=== PATIENT | female | born 1995 | race Caucasian/White ===

== ENCOUNTER 2016-08-07 13:01 | Inpatient (IN) ==
--- NOTE | 2016-08-07 13:18 | Emergency Department Note ---
Disposition Clinical Impression: Suicidal ideation Disposition: Admitted As Inpatient Referrals: Crystal Ervin DO [Resident] - Forms: ED Satisfaction Letter Psych HPI - General Chief Complaint: ED Psychiatric Symptoms Stated Complaint: SI Time Seen by Provider: 08/07/16 13:17 Source: patient Mode of arrival: ambulatory Limitations: no limitations Nursing Notes Reviewed: Yes Vital Signs Reviewed: Yes - History of Present Illness Pt complaint: suicidal ideation, feels depressed Onset (ago): week(s) Duration: constant, changing over time, getting worse History of similar episodes: Yes Improves with: none Worsens with: none Alleged intoxication: No Associated Psychiatric Symptoms: depression, suicidal ideation Associated symptoms: Reports: nausea Traumatic symptoms: denies traumatic injury Treatments prior to arrival: none Self harm or harm to others: admits thoughts of self harm - Related Data Home Medications Medication Instructions Recorded Confirmed Amlodipine [Norvasc] 08/11/15 LORazepam [Ativan] 0.5 mg PO 08/11/15 Multivitamin [Multivitamins] 08/11/15 Previous Rx's Medication Instructions Recorded Amoxicillin 875 mg PO BID #20 tablet 08/11/15 GuaiFENesin ER [Mucinex] 1,200 mg PO BID #20 tbbp.12hr 08/11/15 Loratadine [Claritin] 10 mg PO DAILY #30 tablet 08/11/15 Allergies Allergy/AdvReac Type Severity Reaction Status Date / Time No Known Allergies Allergy Verified 08/07/16 13:08 All systems ED: reviewed and negative except as stated. Constitutional: Denies: fever, chills, weakness Gastrointestinal: Reports: nausea Past Medical History - Past Medical History Source: patient, old records reviewed, obtained from family, nursing notes reviewed Medical history: Reports: hypertension Psychiatric history: Reports: anxiety, depression, previous psychiatric hospitalization - Social History Smoking Status: Never smoker Smokeless Tobacco Status: No Alcohol use: Reports: none Drug use: Reports: none Physical Exam - General Limitations: no limitations General appearance: alert, in no apparent distress - Head Head exam: atraumatic, normocephalic, normal inspection - Eye Eye exam: Present: normal appearance, PERRL, EOMI - Expanded Eye Exam Pupils: Left: reactive - ENT ENT exam: normal exam, normal oropharynx, mucous membranes moist - Expanded ENT Exam External ear exam: Present: normal external inspection Mouth exam: Present: normal external inspection Teeth exam: Present: normal inspection Throat exam: Present: normal inspection - Neck Neck exam: Present: normal inspection, full ROM, trachea midline - Chest Chest inspection: Present: normal inspection, symmetric chest wall rise - Respiratory Respiratory exam: Present: normal lung sounds bilaterally - Cardiovascular Cardiovascular exam: Present: regular rate, normal rhythm, normal heart sounds - Abdominal Exam Abdominal exam: Present: soft, Non-Tender. Absent: tenderness, distention, guarding, rebound, rigidity - Extremities Exam Extremities exam: Present: normal inspection, full ROM. Absent: tenderness, pedal edema - Expanded Upper Extremity Exam Shoulder exam: Present: normal inspection, full ROM Arm exam: Present: normal inspection, full ROM Elbow exam: Present: normal inspection, full ROM Forearm/Wrist exam: Present: normal inspection, full ROM Hand exam: Present: normal inspection, full ROM Vascular exam: Normal: capillary refill, radial pulse - Expanded Lower Extremity Exam Hip/Pelvis exam: Present: normal inspection, full ROM Upper leg exam: Present: normal inspection, full ROM Knee exam: Present: normal inspection, full ROM Lower leg exam: Present: normal inspection, full ROM Ankle exam: Present: normal inspection, full ROM Foot/toe exam: Present: normal inspection, full ROM Neurovascular/Tendon exam: Absent: motor deficit, sensory deficit, tendon deficit - Back Exam Back exam: Present: normal inspection, full ROM. Absent: tenderness - Neurological Exam Neurological exam: Present: alert, oriented X3 - Expanded Neurological Exam Patient oriented to: Present: person, place, time Coma Scale Eye Opening: Spontaneous Coma Scale Motor Response: Obeys Commands Coma Scale Verbal Response: Oriented Coma Scale Total: 15 - Psychiatric Psychiatric exam: Present: normal affect, normal mood - Skin Skin exam: Present: warm, dry, intact, normal color, other (left arm shallow self inflicted abrasions) Course Vital Signs Temperature 98.5 F 08/07/16 13:04 Pulse Rate 117 08/07/16 13:04 Respiratory Rate 17 08/07/16 13:04 Blood Pressure 146/102 08/07/16 13:04 O2 Sat by Pulse Oximetry 96 08/07/16 13:04 Temperature 98.5 F 08/07/16 13:04 Pulse Rate 83 08/07/16 14:12 Respiratory Rate 16 08/07/16 14:12 Blood Pressure 130/85 08/07/16 14:12 O2 Sat by Pulse Oximetry 99 08/07/16 14:12 Oxygen Delivery Oxygen Delivery Room Air Psych - Lab Data Result diagrams: 08/07/16 13:30 08/07/16 13:30 Lab Results 08/07/16 08/07/16 08/07/16 Range/Units 13:13 13:13 13:13 WBC (4.3-11.1) K/mcL RBC (3.82-4.97) M/mcL Hgb (11.5-15.4) g/dL Hct (35.3-44.9) % MCV (83.0-100.0) fL MCH (28.0-33.3) pg MCHC (31.6-35.5) g/dL RDW (11.5-14.5) % Plt Count (140-400) K/mcL MPV (9.4-12.4) fL Immature Gran % (0-4) % Seg Neutrophils % % Lymphocytes % % Monocytes % % Eosinophils % % Basophils % % Neutrophils # (1.6-8.9) K/mcL Lymphocytes # (0.6-4.6) K/mcL Monocytes # (0.0-1.3) K/mcL Eosinophils # (0.0-0.6) K/mcL Basophils # (0.0-0.2) K/mcL Sodium (136-145) mEq/L Potassium (3.5-4.5) mEq/L Chloride (98-109) mEq/L Carbon Dioxide (19-29) mEq/L BUN (7-20) mg/dL Creatinine (0.57-1.11) mg/dL Est GFR ( Amer) (> 60) Est GFR (Non-Af Amer) (> 60) BUN/Creatinine Ratio (6-26) Glucose (70-99) mg/dL Calculated Osmolality (280-300) Calcium (8.6-10.8) mg/dL Total Bilirubin (0.2-1.2) mg/dL AST (5-34) Units/L ALT (0-55) Units/L Alkaline Phosphatase (38-126) Units/L Serum Total Protein (6.0-8.3) g/dL Albumin (3.5-5.0) g/dL Globulin (2.4-3.5) g/dL Albumin/Globulin Ratio (1.1-2.2) TSH (0.350-4.840) mcIU/mL Urine Color Yellow (Yellow) Urine Clarity Clear (Clear) Urine pH 7.0 (5.0-8.0) pH Units Ur Specific [place] 1.014 (1.010-1.025) Urine Protein Negative (Neg-Trace) mg/dL Urine Glucose (UA) Normal (Normal) mg/dL Urine Ketones Negative (Negative) mg/dL Urine Blood Negative (Negative) Urine Nitrite Negative (Negative) Urine Bilirubin Negative (Negative) Urine Urobilinogen Normal (Normal) mg/dL Ur Leukocyte Esterase Negative (Negative) Ur Culture Indicated? NO (NO) Urine Test Negative (Negative) Salicylates (15-30) mg/dL Urine Opiates Screen Negative (Fpwljq=956) ng/mL Acetaminophen (10-30) mcg/mL Ur Barbiturates Screen Negative (Zlkswq=889) ng/mL Ur Phencyclidine Scrn Negative (Cutoff=25) ng/mL Ur Amphetamines Screen Negative (Nyzskc=3466) ng/mL U Benzodiazepines Scrn Negative (Ymjnwx=824) ng/mL Urine Cocaine Screen Negative (Cutoff= 300) ng/mL U Marijuana (THC) Screen Negative (Cutoff = 50) ng/mL 08/07/16 08/07/16 08/07/16 Range/Units 13:30 13:30 13:30 WBC 9.8 (4.3-11.1) K/mcL RBC 4.73 (3.82-4.97) M/mcL Hgb 14.2 (11.5-15.4) g/dL Hct 40.9 (35.3-44.9) % MCV 86.5 (83.0-100.0) fL MCH 30.0 (28.0-33.3) pg MCHC 34.7 (31.6-35.5) g/dL RDW 11.9 (11.5-14.5) % Plt Count 380 (140-400) K/mcL MPV 10.4 (9.4-12.4) fL Immature Gran % 0.2 (0-4) % Seg Neutrophils % 66.0 % Lymphocytes % 26.9 % Monocytes % 5.8 % Eosinophils % 0.6 % Basophils % 0.5 % Neutrophils # 6.4 (1.6-8.9) K/mcL Lymphocytes # 2.6 (0.6-4.6) K/mcL Monocytes # 0.6 (0.0-1.3) K/mcL Eosinophils # 0.1 (0.0-0.6) K/mcL Basophils # 0.1 (0.0-0.2) K/mcL Sodium 140 (136-145) mEq/L Potassium 3.7 (3.5-4.5) mEq/L Chloride 104 (98-109) mEq/L Carbon Dioxide 23 (19-29) mEq/L BUN 9 (7-20) mg/dL Creatinine 0.85 (0.57-1.11) mg/dL Est GFR ( Amer) > 60 (> 60) Est GFR (Non-Af Amer) > 60 (> 60) BUN/Creatinine Ratio 11 (6-26) Glucose 108 H (70-99) mg/dL Calculated Osmolality 289 (280-300) Calcium 10.2 (8.6-10.8) mg/dL Total Bilirubin 0.5 (0.2-1.2) mg/dL AST 14 (5-34) Units/L ALT 14 (0-55) Units/L Alkaline Phosphatase 81 (38-126) Units/L Serum Total Protein 9.1 H (6.0-8.3) g/dL Albumin 4.7 (3.5-5.0) g/dL Globulin 4.4 H (2.4-3.5) g/dL Albumin/Globulin Ratio 1.1 (1.1-2.2) TSH 4.841 H (0.350-4.840) mcIU/mL Urine Color (Yellow) Urine Clarity (Clear) Urine pH (5.0-8.0) pH Units Ur Specific [place] (1.010-1.025) Urine Protein (Neg-Trace) mg/dL Urine Glucose (UA) (Normal) mg/dL Urine Ketones (Negative) mg/dL Urine Blood (Negative) Urine Nitrite (Negative) Urine Bilirubin (Negative) Urine Urobilinogen (Normal) mg/dL Ur Leukocyte Esterase (Negative) Ur Culture Indicated? (NO) Urine Test (Negative) Salicylates < 5.0 L (15-30) mg/dL Urine Opiates Screen (Sbgrrp=426) ng/mL Acetaminophen < 1.0 L (10-30) mcg/mL Ur Barbiturates Screen (Wykecw=811) ng/mL Ur Phencyclidine Scrn (Cutoff=25) ng/mL Ur Amphetamines Screen (Uhmmbd=6247) ng/mL U Benzodiazepines Scrn (Metwru=067) ng/mL Urine Cocaine Screen (Cutoff= 300) ng/mL U Marijuana (THC) Screen (Cutoff = 50) ng/mL Psychiatric Medical Clearance - Medical Clearance Checklist Medical History: No Social History Section defined Current Vitals: Last Vital Signs Temp 98.5 F 08/07/16 13:04 Pulse 83 08/07/16 14:12 Resp 16 08/07/16 14:12 BP 130/85 08/07/16 14:12 Pulse Ox 99 08/07/16 14:12 Psychiatric Lab Panel: Drug Levels and Toxicity 08/07/16 08/07/16 13:13 13:30 Urine Opiates Screen Negative Acetaminophen < 1.0 L Ur Barbiturates Screen Negative Ur Phencyclidine Scrn Negative Ur Amphetamines Screen Negative U Benzodiazepines Scrn Negative Urine Cocaine Screen Negative U Marijuana (THC) Screen Negative Abnormal Labs: Abnormal lab results Glucose 108 mg/dL (70-99) H 08/07/16 13:30 Serum Total Protein 9.1 g/dL (6.0-8.3) H 08/07/16 13:30 Globulin 4.4 g/dL (2.4-3.5) H 08/07/16 13:30 TSH 4.841 mcIU/mL (0.350-4.840) H 08/07/16 13:30 Salicylates < 5.0 mg/dL (15-30) L 08/07/16 13:30 Acetaminophen < 1.0 mcg/mL (10-30) L 08/07/16 13:30 Statement of Medical Clearance: I have evaluated the patient, reviewed diagnostic information, and certify that the patient's medical condition is sufficiently stable that transfer to the psychiatric unit does not pose a significant risk of deterioration.
[2016-08-07 13:40] LABS: Basophils # 0.1 K/mcL (0.0-0.2); Basophils % 0.5 %; Eosinophils # 0.1 K/mcL (0.0-0.6); Eosinophils % 0.6 %; Hematocrit 40.9 % (35.3-44.9); Hemoglobin 14.2 g/dL (11.5-15.4); Immature Granulocytes % 0.2 % (0-4); Lymphocytes # 2.6 K/mcL (0.6-4.6); Lymphocytes % 26.9 %; Mean Corpuscular HGB Conc 34.7 g/dL (31.6-35.5); Mean Corpuscular Volume 86.5 fL (83.0-100.0); Mean Platelet Volume 10.4 fL (9.4-12.4); Monocytes # 0.6 K/mcL (0.0-1.3); Monocytes % 5.8 %; Neutrophils # 6.4 K/mcL (1.6-8.9); Platelet Count 380 K/mcL (140-400); Red Blood Count 4.73 M/mcL (3.82-4.97); Red Cell Distribution Width 11.9 % (11.5-14.5)
[2016-08-07 13:53] LABS: Alanine Aminotransferase 14 Units/L (0-55); Albumin 4.7 g/dL (3.5-5.0); Albumin/Globulin Ratio 1.1 (1.1-2.2); Alkaline Phosphatase 81 Units/L (38-126); Aspartate Amino Transferase 14 Units/L (5-34); BUN/Creatinine Ratio 11 (6-26); Bilirubin,Total 0.5 mg/dL (0.2-1.2); Blood Urea Nitrogen 9 mg/dL (7-20); Calcium 10.2 mg/dL (8.6-10.8); Carbon Dioxide 23 mEq/L (19-29); Chloride 104 mEq/L (98-109); Globulin 4.4 g/dL (2.4-3.5); Glucose 108 mg/dL (70-99); Osmolality,Calculated 289 (280-300); Potassium 3.7 mEq/L (3.5-4.5); Sodium 140 mEq/L (136-145); Total Protein 9.1 g/dL (6.0-8.3); eGFR For African Americans > 60 (> 60); eGFR For Non-African Americans > 60 (> 60)
[2016-08-07 13:54] LABS: Acetaminophen < 1.0 mcg/mL (10-30); Salicylate < 5.0 mg/dL (15-30)
[2016-08-07 14:01] LABS: Bilirubin,Urine Negative (Negative); Blood,Urine Negative (Negative); Clarity,Urine Clear (Clear); Color,Urine Yellow (Yellow); Glucose,Urine (UA) Normal (Normal); Ketones,Urine Negative (Negative); Leukocyte Esterase,Urine Negative (Negative); Nitrite,Urine Negative (Negative); Protein,Urine Negative (Neg-Trace); Specific Gravity,Urine 1.014 (1.010-1.025); Urobilinogen,Urine Normal (Normal)
[2016-08-07 14:03] LABS: Amphetamine Screen,Urine Negative ng/mL (Cutoff=1000); Barbiturate Screen,Urine Negative ng/mL (Cutoff=200); Benzodiazepines Screen,Urine Negative ng/mL (Cutoff=200); Cannabinoid Screen,Urine Negative ng/mL (Cutoff = 50); Cocaine Screen,Urine Negative ng/mL (Cutoff= 300); Opiate Screen,Urine Negative ng/mL (Cutoff=300); Phencyclidine Screen,Urine Negative ng/mL (Cutoff=25)
[2016-08-07 14:14] LABS: Thyroid Stimulating Hormone 4.841 mcIU/mL (0.350-4.840)
[2016-08-07] MEDS ORDERED: *HR* LORazepam 2 MG/ML VIAL IM PRN (18:27)
[2016-08-07] MEDS ORDERED: MOM Conc 10 ML UD.LIQ PO PRN (18:27)
[2016-08-07] MEDS ORDERED: hydrOXYzine pamoate 25 MG CAPSULE PO PRN (18:27)
[2016-08-07] MEDS ORDERED: traZODone 50 MG TABLET PO PRN (18:27)
[2016-08-07] MEDS ORDERED: Acetaminophen 325 MG TABLET PO PRN (18:27)
[2016-08-07] MEDS ORDERED: Mag Hydrox/Al Hydrox/Simeth 30 ML UDC PO PRN (18:27)
[2016-08-07] MEDS ORDERED: Haloperidol Lactate 5 MG/ML VIAL IM PRN (18:27)
[2016-08-07] MEDS: amLODIPine 5 MG TABLET PO SCH (21:09)
[2016-08-08] MEDS: amLODIPine 5 MG TABLET PO SCH ×2 (08:42→21:04)
--- NOTE | 2016-08-08 14:07 | Psychiatry History & Physical ---
Date of Encounter: 08/08/16 Time of Encounter: 13:20 History of Present Illness Patient Stated Chief Complaint: "I just can't take the delusions." Medicare Admission Attestation: For traditional Medicare patients the provided hospital inpatient services are reasonable and necessary and in the case of services not specified as inpatient -only under 42 CFR 419.22 (n), that they are appropriately provided as inpatient services in accordance 42 CFR 412.3. For Critical Access Hospital the patient may reasonably be expected to be discharged or transferred to a hospital within 96 hours after admission to the Critical Access Hospital. Admitted From: Emergency Dept History of Present Illness: Ms. Calix is a 21 year old female with a past histryomood, anxiety, personality disorder who presented to the hospital with increasing depression as well as suicidal and homicidal ideation. Patient reports that she has stopped taking all her medications and is not doing well. Patient reports difficulty sleeping. She reports auditory hallucinations and also thoughts about wanting to hurt herself. She reports visual hallucinations and seeing shadows out of the corners of her eyes. She reports that she feels like she is "being watched." She has had difficulty coping with multiple stressors. She lives with her father. She is not responding to internal stimuli at the time the interview. Patient states that about 3 months ago her entire family got stomach and her fear of germs and vomiting exacerbated now she feels very distressed and anxious all the time even though his sickness has passed. She continually avoids medications because of perceived side effects and concern for side effects. She denies obsessions or compulsions today. She does report a history of self-harm and she will cut and burned herself at times. There are superficial scratch chin on her forearms. She reports suicidal ideation but denied actually intending suicide. She does report 3 previous psychiatric admissions only one of which was here to the unit. Michael previous admissions in 2012 2013 at [facility]. Patient continues to report depression, mood swings, irritability as well as vague suicidal ideation without plan. Past Med Surg Social Fam HX - Past Medical History Medical history: hypertension - Past Psychiatric History Psychiatric history: Reports: anxiety, depression, previous psychiatric hospitalization. Denies: prior suicide attempt Past psychiatric history details: Patient has history of mood disorder, personality disorder, anxiety. Previous treatment here at [facility] outpatient but patient stopped coming. No previous suicide attempts. Previous admissions per history of present illness. Family psychiatric history: Yes Family Psychiatric History Details: Patient's sister has depression. Family History of Suicide: None - Social History Smoking Status: Never smoker Smokeless Tobacco Status: No Alcohol use: none Drug use: none Occupational status: unemployed Current living situation: Home, With Family Activity Level: Independent ambulation Medications & Allergies Amlodipine [Norvasc] 5 mg PO BID 08/11/15 [History] Allergies No Known Allergies Allergy (Verified 08/07/16 13:08) Review of Systems Constitutional: Denies: fever, chills, weakness, weight change Eyes: Denies: eye pain, vision change Ears, Nose, Throat: Denies: ear pain, throat pain, dental pain, hearing loss, congestion Cardiovascular: Denies: chest pain, palpitations, dyspnea on exertion Respiratory: Denies: cough, dyspnea, wheezes Gastrointestinal: Reports: nausea Genitourinary male: Denies: urgency, dysuria, frequency, genital lesions Genitourinary female: Denies: urgency, dysuria, frequency, abnormal menses, dyspareunia Musculoskeletal: Denies: joint swelling, joint pain Integumentary: Denies: rash, lesions, pruritus Neurological: Denies: headache, weakness, numbness, memory loss Psychiatric: Reports: depression, anxiety, abnormal sleep pattern, suicidal ideation, auditory hallucinations, visual hallucinations, difficulty concentrating, hopelessness, irritability, mood swings. Denies: homicidal ideation Endocrine: Denies: fatigue, heat or cold intolerance Hematologic/Lymphatic: Denies: easy bruising, lymphadenopathy Allergic/Immunologic: Denies: urticaria, itchy eyes Mental Status Exam Patient orientation: Yes Person, Yes Time, Yes Place Level of alertness: Alert Patient appearance: Appropriate, Well Groomed Behavior: calm, cooperative Psychomotor activity: Normal Eye contact: Minimal Contact Mood description: Depressed, Anxious Affect description: blunted Speech pattern: Normal rate, Normal rhythm, Normal tone Speech volume: Soft/Quiet Thought process: Logical, Goal Oriented Thought content: Yes Suicidal ideation, Yes Paranoid delusion Perceptual disturbances: No Reacting to internal stimuli, Yes Auditory hallucinations, Yes Visual hallucinations Attention span: Capable of Focused Attention Memory description: Grossly Intact Patient reliability: Questionable Historian Intelligence estimate: Average Judgment: Limited Insight: Minimal Exam - HEENT Head exam IM: Present: atraumatic Eye exam IM: Present: normal appearance - Neurological Neurological exam IM: Present: CN II-XII intact - Skin Skin exam IM: Present: dry, warm Results - Vital Signs Vital signs: Temp Pulse Resp BP Pulse Ox 98 F 83 16 133/92 99 08/08/16 09:00 08/08/16 09:00 08/08/16 09:00 08/08/16 09:00 08/07/16 14:12 - Labs Labs: Laboratory Last Values WBC 9.8 K/mcL (4.3-11.1) 08/07/16 13:30 RBC 4.73 M/mcL (3.82-4.97) 08/07/16 13:30 Hgb 14.2 g/dL (11.5-15.4) 08/07/16 13:30 Hct 40.9 % (35.3-44.9) 08/07/16 13:30 MCV 86.5 fL (83.0-100.0) 08/07/16 13:30 MCH 30.0 pg (28.0-33.3) 08/07/16 13:30 MCHC 34.7 g/dL (31.6-35.5) 08/07/16 13:30 RDW 11.9 % (11.5-14.5) 08/07/16 13:30 Plt Count 380 K/mcL (140-400) 08/07/16 13:30 MPV 10.4 fL (9.4-12.4) 08/07/16 13:30 Immature Gran % 0.2 % (0-4) 08/07/16 13:30 Seg Neutrophils % 66.0 % 08/07/16 13:30 Lymphocytes % 26.9 % 08/07/16 13:30 Monocytes % 5.8 % 08/07/16 13:30 Eosinophils % 0.6 % 08/07/16 13:30 Basophils % 0.5 % 08/07/16 13:30 Neutrophils # 6.4 K/mcL (1.6-8.9) 08/07/16 13:30 Lymphocytes # 2.6 K/mcL (0.6-4.6) 08/07/16 13:30 Monocytes # 0.6 K/mcL (0.0-1.3) 08/07/16 13:30 Eosinophils # 0.1 K/mcL (0.0-0.6) 08/07/16 13:30 Basophils # 0.1 K/mcL (0.0-0.2) 08/07/16 13:30 Sodium 140 mEq/L (136-145) 08/07/16 13:30 Potassium 3.7 mEq/L (3.5-4.5) 08/07/16 13:30 Chloride 104 mEq/L (98-109) 08/07/16 13:30 Carbon Dioxide 23 mEq/L (19-29) 08/07/16 13:30 BUN 9 mg/dL (7-20) 08/07/16 13:30 Creatinine 0.85 mg/dL (0.57-1.11) 08/07/16 13:30 Est GFR ( Amer) > 60 (> 60) 08/07/16 13:30 Est GFR (Non-Af Amer) > 60 (> 60) 08/07/16 13:30 BUN/Creatinine Ratio 11 (6-26) 08/07/16 13:30 Glucose 108 mg/dL (70-99) H 08/07/16 13:30 Calculated Osmolality 289 (280-300) 08/07/16 13:30 Calcium 10.2 mg/dL (8.6-10.8) 08/07/16 13:30 Total Bilirubin 0.5 mg/dL (0.2-1.2) 08/07/16 13:30 AST 14 Units/L (5-34) 08/07/16 13:30 ALT 14 Units/L (0-55) 08/07/16 13:30 Alkaline Phosphatase 81 Units/L (38-126) 08/07/16 13:30 Serum Total Protein 9.1 g/dL (6.0-8.3) H 08/07/16 13:30 Albumin 4.7 g/dL (3.5-5.0) 08/07/16 13:30 Globulin 4.4 g/dL (2.4-3.5) H 08/07/16 13:30 Albumin/Globulin Ratio 1.1 (1.1-2.2) 08/07/16 13:30 TSH 4.841 mcIU/mL (0.350-4.840) H 08/07/16 13:30 Urine Color Yellow (Yellow) 08/07/16 13:13 Urine Clarity Clear (Clear) 08/07/16 13:13 Urine pH 7.0 pH Units (5.0-8.0) 08/07/16 13:13 Ur Specific [place] 1.014 (1.010-1.025) 08/07/16 13:13 Urine Protein Negative mg/dL (Neg-Trace) 08/07/16 13:13 Urine Glucose (UA) Normal mg/dL (Normal) 08/07/16 13:13 Urine Ketones Negative mg/dL (Negative) 08/07/16 13:13 Urine Blood Negative (Negative) 08/07/16 13:13 Urine Nitrite Negative (Negative) 08/07/16 13:13 Urine Bilirubin Negative (Negative) 08/07/16 13:13 Urine Urobilinogen Normal mg/dL (Normal) 08/07/16 13:13 Ur Leukocyte Esterase Negative (Negative) 08/07/16 13:13 Ur Culture Indicated? NO (NO) 08/07/16 13:13 Urine Test Negative (Negative) 08/07/16 13:13 Salicylates < 5.0 mg/dL (15-30) L 08/07/16 13:30 Urine Opiates Screen Negative ng/mL (Efgxwj=697) 08/07/16 13:13 Acetaminophen < 1.0 mcg/mL (10-30) L 08/07/16 13:30 Ur Barbiturates Screen Negative ng/mL (Adynfo=013) 08/07/16 13:13 Ur Phencyclidine Scrn Negative ng/mL (Cutoff=25) 08/07/16 13:13 Ur Amphetamines Screen Negative ng/mL (Acnihx=5131) 08/07/16 13:13 U Benzodiazepines Scrn Negative ng/mL (Njsjxp=127) 08/07/16 13:13 Urine Cocaine Screen Negative ng/mL (Cutoff= 300) 08/07/16 13:13 U Marijuana (THC) Screen Negative ng/mL (Cutoff = 50) 08/07/16 13:13 Assessment and Plan (1) Bipolar disorder, unspecified Current visit: Yes Status: Acute Plan: Admit inpatient for safety and stabilization, Close observation, Suicide Precautions per unit protocol, Encourage participation in unit milieu, Group Therapy, Monitor sleep, Monitor appetite Additional Plan: Discussed multiple medications with the patient. She is very hesitant to take meds. We will start with Seroquel 50 mg by mouth daily at bedtime as patient feels that she has the most benefit with this medication and states it helped with auditory and visual hallucinations. Encourage patient to participate in therapeutic milieu and will monitor sleep and ADLs. Risks, benefits, side effects, alternatives discussed w/pt: Yes Patient agreeable to treatment: Yes Plans for Post Hospital Care: Home Estimated Length of Stay (Days): 3 Qualifiers: Active/Remission status: currently active Current bipolar episode type: depressed Current episode severity: severe Psychotic features: with psychotic features Qualified Code(s): F31.5 - Bipolar disorder, current episode depressed, severe, with psychotic features (2) Anxiety Current visit: Yes Status: Acute Plan: Admit inpatient for safety and stabilization, Close observation, Suicide Precautions per unit protocol, Encourage participation in unit milieu, Group Therapy, Monitor sleep, Monitor appetite Additional Plan: Ativan when necessary as needed for anxiety. Patient has tolerated this medication. Encourage positive coping strategies. Risks, benefits, side effects, alternatives discussed w/pt: Yes Patient agreeable to treatment: Yes Plans for Post Hospital Care: Home (3) Personality disorder Current visit: Yes Status: Acute Plan: Admit inpatient for safety and stabilization, Close observation, Suicide Precautions per unit protocol, Encourage participation in unit milieu, Group Therapy, Monitor sleep, Monitor appetite Additional Plan: I will encourage patient to attend regular therapy appointments on discharge. Patient has poor coping strategies for limited stressors in her life at this time. I reviewed patient's outpatient records, most recently treated by PCP patient was supposed to take Geodon but refused to try it. Risks, benefits, side effects, alternatives discussed w/pt: Yes Patient agreeable to treatment: Yes Plans for Post Hospital Care: Home Estimated Length of Stay (Days): 3
[2016-08-08] MEDS: *HR* LORazepam 1 MG TABLET PO PRN (21:53)
[2016-08-09] MEDS: amLODIPine 5 MG TABLET PO SCH ×2 (10:16→21:01)
[2016-08-09] MEDS ORDERED: *HR* LORazepam 0.5 MG TABLET PO PRN (13:18)
--- NOTE | 2016-08-09 13:52 | Psychiatry Progress Note ---
Date of Encounter: 08/09/16 Time of Encounter: 12:40 Subjective Interval history: Patient seen today for follow-up. She reports she still depressed and intermittently having suicidal ideation. She had a "meltdown last night." She told staff that she did not think anybody cared about her and that nothing was helping. She did take her Seroquel which helped calm her down and she was also given Ativan. Patient feels that both of the doses may have been a little bit high and she now feels a bit groggy this morning. She would like to continue with the same medication but maybe decrease the dosage. She still feels depressed. She also reports some anxiety but states that this is worse in the hospital than when she is home. She denies auditory or visual hallucinations at the time of the interview but admits to still intermittently having hallucinations both visual and auditory. Review of Systems Psychiatric: Reports: depression, anxiety, abnormal sleep pattern, suicidal ideation, auditory hallucinations, visual hallucinations, difficulty concentrating, irritability, mood swings, panic attacks. Denies: homicidal ideation Objective: Exam Patient orientation: Yes Person, Yes Time, Yes Place Level of alertness: Alert Patient appearance: Appropriate Behavior: cooperative, anxious Psychomotor activity: Normal Eye contact: Fleeting Contact Mood description: Depressed, Anxious Affect description: flat, dysphoric Speech pattern: Slowed Speech volume: Soft/Quiet Thought process: Intact, Logical Thought content: Yes Suicidal ideation, No Homicidal ideation, Yes Paranoid delusion Perceptual disturbances: No Reacting to internal stimuli, Yes Auditory hallucinations, Yes Visual hallucinations Judgment: Limited Insight: Minimal Results - Vital Signs Vital Signs: Temp Pulse Resp BP Pulse Ox 98.0 F 114 16 137/93 99 08/09/16 08:45 08/09/16 08:45 08/09/16 08:45 08/09/16 08:45 08/07/16 14:12 Assessment and Plan (1) Bipolar disorder, unspecified Current visit: Yes Status: Acute Plan: Continue hospitalization, Close observation, Suicide Precautions per unit protocol, Encourage participation in unit milieu, Group Therapy, Monitor sleep, Monitor appetite Additional Plan: Decrease Seroquel to 25 mg by mouth daily at bedtime. Increase as tolerated. Risks, benefits, side effects, alternatives discussed w/pt: Yes Patient agreeable to treatment: Yes Qualifiers: Active/Remission status: currently active Current bipolar episode type: depressed Current episode severity: severe Psychotic features: with psychotic features Qualified Code(s): F31.5 - Bipolar disorder, current episode depressed, severe, with psychotic features (2) Anxiety Current visit: Yes Status: Acute Plan: Continue hospitalization, Close observation, Suicide Precautions per unit protocol, Encourage participation in unit milieu, Group Therapy, Monitor sleep, Monitor appetite Additional Plan: We will decrease when necessary Ativan to half a milligram as needed daily. Continue to monitor blood pressure closely. Risks, benefits, side effects, alternatives discussed w/pt: Yes Patient agreeable to treatment: Yes (3) Personality disorder Current visit: Yes Status: Acute Plan: Continue hospitalization, Close observation, Suicide Precautions per unit protocol, Encourage participation in unit milieu, Group Therapy, Monitor sleep, Monitor appetite Additional Plan: Continue to encourage positive coping strategies. Patient is very into our and we will continue to encourage her to use this as an outlet for emotional issues. Patient will need both follow-up with a therapist as well as a psychiatrist on discharge. Risks, benefits, side effects, alternatives discussed w/pt: Yes Patient agreeable to treatment: Yes Consult Discharge Plan - Plan Referrals: NO,PCP [Primary Care Provider] -
[2016-08-10] MEDS: amLODIPine 5 MG TABLET PO SCH ×2 (08:44→20:17)
--- NOTE | 2016-08-10 14:23 | Psychiatry Progress Note ---
Date of Encounter: 08/10/16 Time of Encounter: 14:00 Subjective Interval history: Patient is here for follow-up. I reviewed notes by nursing staff and Dr. Sewell. Patient reports doing better on a smaller dose of Seroquel 25 mg she does not feel sedated or lethargic. She reports on and off auditory and visual hallucinations currently uses frequent. 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 THIS TIME PATIENT IS NOT INTERESTED IN ADDING ANY MEDICATION AND FEELS SHE IS WELL-MANAGED BY CURRENT MEDICATION. SHE DENIES ANY SUICIDAL IDEATION. Review of Systems Psychiatric: Reports: depression, anxiety, abnormal sleep pattern, suicidal ideation, auditory hallucinations, visual hallucinations, difficulty concentrating, irritability, mood swings, panic attacks. Denies: homicidal ideation Objective: Exam Patient orientation: Yes Person, Yes Time, Yes Place Level of alertness: Alert Patient appearance: Appropriate Behavior: calm, cooperative, anxious Psychomotor activity: Normal Eye contact: Maintains Eye Contact Mood description: Depressed, Anxious Affect description: congruent with mood, flat, dysphoric Speech pattern: Normal rate, Normal rhythm, Normal tone, Clear Speech volume: Soft/Quiet Thought process: Intact, Logical Thought content: Yes Suicidal ideation, No Homicidal ideation, Yes Paranoid delusion Perceptual disturbances: No Reacting to internal stimuli, Yes Auditory hallucinations, Yes Visual hallucinations Judgment: Limited Insight: Minimal Results - Vital Signs Vital Signs: Temp Pulse Resp BP Pulse Ox 98 F 96 16 135/94 99 08/10/16 08:57 08/10/16 08:57 08/10/16 08:57 08/10/16 08:57 08/07/16 14:12 Assessment and Plan (1) Bipolar disorder, unspecified Current visit: Yes Status: Acute Plan: Continue hospitalization, Close observation, Suicide Precautions per unit protocol, Encourage participation in unit milieu, Group Therapy, Monitor sleep, Monitor appetite Risks, benefits, side effects, alternatives discussed w/pt: Yes Patient agreeable to treatment: Yes Qualifiers: Active/Remission status: currently active Current bipolar episode type: depressed Current episode severity: severe Psychotic features: with psychotic features Qualified Code(s): F31.5 - Bipolar disorder, current episode depressed, severe, with psychotic features Consult Discharge Plan - Plan Referrals: NO,PCP [Primary Care Provider] -
[2016-08-10] MEDS: *HR* LORazepam 1 MG TABLET PO PRN (21:34)
[2016-08-11] MEDS: amLODIPine 5 MG TABLET PO SCH (08:12)
[2016-08-11 10:22] VITALS: BP 136/100
--- NOTE | 2016-08-11 15:07 | Discharge Summary ---
Date of Encounter: 08/11/16 Time of Encounter: 14:30 Diagnosis - Discharge Diagnosis (1) Bipolar disorder, unspecified Priority: Primary Status: Acute Qualifiers: Active/Remission status: currently active Current bipolar episode type: depressed Current episode severity: severe Psychotic features: with psychotic features Qualified Code(s): F31.5 - Bipolar disorder, current episode depressed, severe, with psychotic features Medications - Discharge Medications Prescriptions: LORazepam [Ativan] 0.5 mg PO DAILY PRN #30 tablet PRN Reason: Anxiety Quetiapine Fumarate [Seroquel] 25 mg PO HS #30 tablet Amlodipine [Norvasc] 5 mg PO BID 08/11/15 [History] LORazepam [Ativan] 0.5 mg PO DAILY PRN #30 tablet 08/11/16 [Rx] Quetiapine Fumarate [Seroquel] 25 mg PO HS #30 tablet 08/11/16 [Rx] Allergies No Known Allergies Allergy (Verified 08/07/16 13:08) Provider Date of admission: 08/07/16 17:38 Primary care physician: PCP PATTIE Discharging clinician: Link Campo Assessment and Plan - Patient/Caregiver Discharge Instructions Activity: resume usual activities as tolerated Diet: regular diet - Follow up Plan Follow up with: NO,PCP [Primary Care Provider] - Functional capacity at discharge: independent ambulation Overall status at discharge: Stable Disposition: Home, Self-Care Hospital Course Hospital course: Ms. Calix is a 21 year old female admitted for depression and suicidal ideation and auditory hallucinations. For details of the admission please see H &P On the units patient medication dose was reduced to Seroquel 25 mg at bedtime and lorazepam when necessary. Patient was reluctant to have any medication changes. Patient was told about anxiety in public and her obsessiveness about contamination and germs and is socially isolated. Patient did not interact with participate in activities. Discharge patient was medically stable and denies suicidal ideation and follow- up plans were completed. - Time Spent with Patient Total time spent providing and/or coordinating discharge services: Greater than 30 minutes Quality - Multiple Antipsychotics Patient discharged on 2 or more antipsychotic medications: No Procedures - Procedures Procedures: Medication Management, Crisis Stabilization, Supportive Therapy, Group Therapy, Psychoeducational Therapy Mental Status Exam - Mental Status Exam Patient orientation: Yes Person, Yes Time, Yes Place Level of alertness: Alert Patient appearance: Appropriate Behavior: calm, cooperative, anxious Psychomotor activity: Normal Eye contact: Maintains Eye Contact Mood description: Euthymic/stable, Anxious Affect description: congruent with mood, flat, dysphoric Speech pattern: Normal rate, Normal rhythm, Normal tone, Clear Speech Volume: Soft/Quiet Thought process: Intact, Logical Thought Content: No Suicidal ideation, No Homicidal ideation, Yes Paranoid delusion Perceptual Disturbances: No Reacting to internal stimuli, Yes Auditory hallucinations, No Visual hallucinations Judgment: Limited Insight: Minimal
== END 2016-08-11 18:05 | disposition home or self-care (01) | DRG 885 ==
LOC: EMEROO 13:01 → 1ANU 17:38 → SUATTDRO 17:38 → 1ANU 18:11
PROVIDERS: ADMIT Student in an Organized Health Care Education/Training Program; ATTEND Psychiatry & Neurology Psychiatry

== ENCOUNTER 2017-03-20 18:39 | Inpatient (IN) ==
--- NOTE | 2017-03-20 18:54 | Emergency Department Note ---
Disposition Clinical Impression: Suicidal ideation, Auditory hallucination, Visual hallucination Disposition: Admitted As Inpatient Condition: Good General Adult HPI - General Chief complaint: ED Psychiatric Symptoms Stated complaint: SI Time Seen by Provider: 03/20/17 18:45 Source: patient, family Limitations: no limitations - History of Present Illness Pain Scale: 0 - Related Data Home Medications Medication Instructions Recorded Confirmed amLODIPine [Norvasc] 5 mg PO BID 08/11/15 08/07/16 Previous Rx's Medication Instructions Recorded LORazepam [Ativan] 0.5 mg PO DAILY PRN #30 tablet 08/11/16 Quetiapine Fumarate [Seroquel] 25 mg PO HS #30 tablet 08/11/16 Allergies Allergy/AdvReac Type Severity Reaction Status Date / Time No Known Allergies Allergy Verified 03/20/17 18:44 Past Medical History - Past Medical History Medical history: Reports: hypertension Psychiatric history: Reports: anxiety, depression, previous psychiatric hospitalization - Social History Smoking Status: Never smoker Smokeless Tobacco Status: No Alcohol use: Reports: none Drug use: Reports: none Physical Exam - General Limitations: no limitations General appearance: alert, in no apparent distress Course Vital Signs Temperature 98.1 F 03/20/17 18:40 Pulse Rate 105 03/20/17 18:40 Respiratory Rate 16 03/20/17 18:40 Blood Pressure 164/118 03/20/17 18:40 O2 Sat by Pulse Oximetry 96 03/20/17 18:40 Temperature 99.1 F 03/21/17 08:00 Pulse Rate 88 03/21/17 08:00 Respiratory Rate 16 03/21/17 08:00 Blood Pressure 144/100 03/21/17 08:00 O2 Sat by Pulse Oximetry 96 03/20/17 18:40 Oxygen Delivery Oxygen Delivery Room Air Medical Decision Making - Lab Data Result diagrams: 03/20/17 19:00 03/20/17 19:00 Lab Results 03/20/17 03/20/17 03/20/17 Range/Units 19:00 19:00 19:03 WBC 9.8 (4.3-11.1) K/mcL RBC 4.61 (3.82-4.97) M/mcL Hgb 14.2 (11.5-15.4) g/dL Hct 40.6 (35.3-44.9) % MCV 88.1 (83.0-100.0) fL MCH 30.8 (28.0-33.3) pg MCHC 35.0 (31.6-35.5) g/dL RDW 12.0 (11.5-14.5) % Plt Count 320 (140-400) K/mcL MPV 10.7 (9.4-12.4) fL Immature Gran % 0.1 (0-4) % Seg Neutrophils % 62.8 % Lymphocytes % 29.3 % Monocytes % 6.4 % Eosinophils % 1.0 % Basophils % 0.4 % Neutrophils # 6.1 (1.6-8.9) K/mcL Lymphocytes # 2.9 (0.6-4.6) K/mcL Monocytes # 0.6 (0.0-1.3) K/mcL Eosinophils # 0.1 (0.0-0.6) K/mcL Basophils # 0.0 (0.0-0.2) K/mcL Sodium 138 (136-145) mEq/L Potassium 3.8 (3.5-4.5) mEq/L Chloride 107 (98-109) mEq/L Carbon Dioxide 19 (19-29) mEq/L BUN 7 (7-20) mg/dL Creatinine 0.83 (0.57-1.11) mg/dL Est GFR ( Amer) > 60 (> 60) Est GFR (Non-Af Amer) > 60 (> 60) BUN/Creatinine Ratio 8 (6-26) Glucose 103 H (70-99) mg/dL Calculated Osmolality 284 (280-300) Calcium 9.9 (8.6-10.8) mg/dL Total Bilirubin 0.4 (0.2-1.2) mg/dL Direct Bilirubin 0.2 (0.0-0.5) mg/dL Indirect Bilirubin 0.2 (0.0-1.2) mg/dL AST 14 (5-34) Units/L ALT 14 (0-55) Units/L Alkaline Phosphatase 80 (38-126) Units/L Serum Total Protein 8.6 H (6.0-8.3) g/dL Albumin 4.3 (3.5-5.0) g/dL Globulin 4.3 H (2.4-3.5) g/dL Albumin/Globulin Ratio 1.0 L (1.1-2.2) Urine Test (Negative) Salicylates < 5.0 L (15-30) mg/dL Urine Opiates Screen Negative (Jctezh=422) ng/mL Acetaminophen < 1.0 L (10-30) mcg/mL Ur Barbiturates Screen Negative (Wmewxt=910) ng/mL Ur Phencyclidine Scrn Negative (Cutoff=25) ng/mL Ur Amphetamines Screen Negative (Qkjquv=7635) ng/mL U Benzodiazepines Scrn Negative (Zgcqqj=403) ng/mL Urine Cocaine Screen Negative (Cutoff= 300) ng/mL U Marijuana (THC) Screen Negative (Cutoff = 50) ng/mL Ethyl Alcohol < 10 (0-10) mg/dL 03/20/17 Range/Units 19:03 WBC (4.3-11.1) K/mcL RBC (3.82-4.97) M/mcL Hgb (11.5-15.4) g/dL Hct (35.3-44.9) % MCV (83.0-100.0) fL MCH (28.0-33.3) pg MCHC (31.6-35.5) g/dL RDW (11.5-14.5) % Plt Count (140-400) K/mcL MPV (9.4-12.4) fL Immature Gran % (0-4) % Seg Neutrophils % % Lymphocytes % % Monocytes % % Eosinophils % % Basophils % % Neutrophils # (1.6-8.9) K/mcL Lymphocytes # (0.6-4.6) K/mcL Monocytes # (0.0-1.3) K/mcL Eosinophils # (0.0-0.6) K/mcL Basophils # (0.0-0.2) K/mcL Sodium (136-145) mEq/L Potassium (3.5-4.5) mEq/L Chloride (98-109) mEq/L Carbon Dioxide (19-29) mEq/L BUN (7-20) mg/dL Creatinine (0.57-1.11) mg/dL Est GFR ( Amer) (> 60) Est GFR (Non-Af Amer) (> 60) BUN/Creatinine Ratio (6-26) Glucose (70-99) mg/dL Calculated Osmolality (280-300) Calcium (8.6-10.8) mg/dL Total Bilirubin (0.2-1.2) mg/dL Direct Bilirubin (0.0-0.5) mg/dL Indirect Bilirubin (0.0-1.2) mg/dL AST (5-34) Units/L ALT (0-55) Units/L Alkaline Phosphatase (38-126) Units/L Serum Total Protein (6.0-8.3) g/dL Albumin (3.5-5.0) g/dL Globulin (2.4-3.5) g/dL Albumin/Globulin Ratio (1.1-2.2) Urine Test Negative (Negative) Salicylates (15-30) mg/dL Urine Opiates Screen (Aqduub=764) ng/mL Acetaminophen (10-30) mcg/mL Ur Barbiturates Screen (Etwcmz=194) ng/mL Ur Phencyclidine Scrn (Cutoff=25) ng/mL Ur Amphetamines Screen (Iwajzk=4137) ng/mL U Benzodiazepines Scrn (Gvxrks=745) ng/mL Urine Cocaine Screen (Cutoff= 300) ng/mL U Marijuana (THC) Screen (Cutoff = 50) ng/mL Ethyl Alcohol (0-10) mg/dL Attestation Statement - Attestation Attestation: I examined this patient and my medical decision-making was reviewed with the Resident Physician. I agree with the documented findings, disposition and treatment plan as described except to the extent set forth below. Face to face time provided Patient reports feeling suicidal. She appears in no acute distress on exam. Triage vitals indicate hypertension. We will attempt to clear her medically for behavioral evaluation
[2017-03-20 19:07] LABS: Basophils % 0.4 %; Eosinophils # 0.1 K/mcL (0.0-0.6); Hematocrit 40.6 % (35.3-44.9); Hemoglobin 14.2 g/dL (11.5-15.4); Immature Granulocytes % 0.1 % (0-4); Lymphocytes # 2.9 K/mcL (0.6-4.6); Lymphocytes % 29.3 %; Mean Corpuscular Hemoglobin 30.8 pg (28.0-33.3); Mean Corpuscular Volume 88.1 fL (83.0-100.0); Mean Platelet Volume 10.7 fL (9.4-12.4); Monocytes # 0.6 K/mcL (0.0-1.3); Monocytes % 6.4 %; Neutrophils # 6.1 K/mcL (1.6-8.9); Platelet Count 320 K/mcL (140-400); Red Blood Count 4.61 M/mcL (3.82-4.97); Segmented Neutrophils % 62.8 %
--- NOTE | 2017-03-20 19:12 | Emergency Department Note ---
Disposition Clinical Impression: Suicidal ideation, Auditory hallucination, Visual hallucination Disposition: Admitted As Inpatient Condition: Good Referrals: NONE,PCP [Primary Care Provider] - Forms: ED Satisfaction Letter Time of Disposition: 20:31 Psych HPI - General Chief Complaint: ED Psychiatric Symptoms Stated Complaint: SI Time Seen by Provider: 03/20/17 18:45 Source: patient, family Limitations: no limitations Nursing Notes Reviewed: Yes Vital Signs Reviewed: Yes - History of Present Illness HPI Narrative: 21-year-old female presenting to the emergency department with chief complaint of suicidal ideation and auditory and visual hallucinations. Patient states her mother and grandmother have significant psychiatric history of bipolar disorder and schizophrenia. Her sister also struggles with mental health disorder. Patient does have an outpatient counselor who she regularly sees. She denies any new medication changes. She denies any specific suicidal plan. She denies homicidal ideation. Patient has no medical concerns or complaints at this time. - Related Data Home Medications Medication Instructions Recorded Confirmed amLODIPine [Norvasc] 5 mg PO BID 08/11/15 08/07/16 Previous Rx's Medication Instructions Recorded LORazepam [Ativan] 0.5 mg PO DAILY PRN #30 tablet 08/11/16 Quetiapine Fumarate [Seroquel] 25 mg PO HS #30 tablet 08/11/16 Allergies Allergy/AdvReac Type Severity Reaction Status Date / Time No Known Allergies Allergy Verified 03/20/17 18:44 All systems ED: reviewed and negative except as stated. Constitutional: Denies: fever, chills Eyes: Reports: as per HPI ENT ED: Reports: as per HPI Cardiovascular: Denies: chest pain, palpitations Respiratory: Denies: cough, dyspnea, wheezes Gastrointestinal: Denies: abdominal pain, nausea, vomiting Genitourinary: Reports: as per HPI Musculoskeletal: Reports: as per HPI Integumentary: Denies: rash, abrasion Neurological: Denies: weakness, numbness, paresthesias Psychiatric: Reports: as per HPI Endocrine: Reports: as per HPI Hematological/Lymphatic: Reports: as per HPI Allergic/Immunologic: Reports: as per HPI Past Medical History - Past Medical History Attestation: Yes The following information was validated with the patient. Medical history: Reports: hypertension Psychiatric history: Reports: anxiety, depression, previous psychiatric hospitalization - Social History Smoking Status: Never smoker Smokeless Tobacco Status: No Alcohol use: Reports: none Drug use: Reports: none Physical Exam - General Limitations: no limitations General appearance: alert, in no apparent distress - Head Head exam: atraumatic, normocephalic, normal inspection - Eye Eye exam: Present: normal appearance. Absent: scleral icterus, conjunctival injection - Chest Chest inspection: Present: normal inspection, symmetric chest wall rise. Absent : tenderness, rash - Respiratory Respiratory exam: Present: normal lung sounds bilaterally. Absent: respiratory distress, wheezes, stridor - Cardiovascular Cardiovascular exam: Present: normal rhythm, tachycardia, normal heart sounds - Abdominal Exam Abdominal exam: Present: soft, Non-Tender. Absent: distention, guarding, rebound - Extremities Exam Extremities exam: Present: normal inspection, full ROM - Neurological Exam Neurological exam: Present: alert, oriented X3 - Psychiatric Psychiatric exam: Present: depressed, anxious - Skin Skin exam: Present: warm, intact Course Course Narrative: 21-year-old female presented to the emergency department for psychiatric clearance. Patient states she has suicidal ideation but no specific plan. Patient also states she has auditory and visual hallucinations. Patient has no medical concerns or complaints at this time. We will perform basic psychiatric lab workup and referred disposition to 1A. patient's alert and oriented 3 in the room with family at bedside. She is tachycardiac but otherwise vital signs are stable at this time. - Reevaluation(s) Reevaluation #1: Patient needs inpatient psychiatric workup criteria according to one A. We will admit the patient at this time to Dr. Lazo. Time: 20:31 Vital Signs Temperature 98.1 F 03/20/17 18:40 Pulse Rate 105 03/20/17 18:40 Respiratory Rate 16 03/20/17 18:40 Blood Pressure 164/118 03/20/17 18:40 O2 Sat by Pulse Oximetry 96 03/20/17 18:40 Temperature 98.1 F 03/20/17 18:40 Pulse Rate 105 03/20/17 18:40 Respiratory Rate 16 03/20/17 18:40 Blood Pressure 164/118 03/20/17 18:40 O2 Sat by Pulse Oximetry 96 03/20/17 18:40 Oxygen Delivery Oxygen Delivery Room Air Psych - Lab Data Result diagrams: 03/20/17 19:00 03/20/17 19:00 Lab Results 11/04/17 11/04/17 11/04/17 Range/Units 19:00 19:00 19:03 WBC 9.8 (4.3-11.1) K/mcL RBC 4.61 (3.82-4.97) M/mcL Hgb 14.2 (11.5-15.4) g/dL Hct 40.6 (35.3-44.9) % MCV 88.1 (83.0-100.0) fL MCH 30.8 (28.0-33.3) pg MCHC 35.0 (31.6-35.5) g/dL RDW 12.0 (11.5-14.5) % Plt Count 320 (140-400) K/mcL MPV 10.7 (9.4-12.4) fL Immature Gran % 0.1 (0-4) % Seg Neutrophils % 62.8 % Lymphocytes % 29.3 % Monocytes % 6.4 % Eosinophils % 1.0 % Basophils % 0.4 % Neutrophils # 6.1 (1.6-8.9) K/mcL Lymphocytes # 2.9 (0.6-4.6) K/mcL Monocytes # 0.6 (0.0-1.3) K/mcL Eosinophils # 0.1 (0.0-0.6) K/mcL Basophils # 0.0 (0.0-0.2) K/mcL Sodium 138 (136-145) mEq/L Potassium 3.8 (3.5-4.5) mEq/L Chloride 107 (98-109) mEq/L Carbon Dioxide 19 (19-29) mEq/L BUN 7 (7-20) mg/dL Creatinine 0.83 (0.57-1.11) mg/dL Est GFR ( Amer) > 60 (> 60) Est GFR (Non-Af Amer) > 60 (> 60) BUN/Creatinine Ratio 8 (6-26) Glucose 103 H (70-99) mg/dL Calculated Osmolality 284 (280-300) Calcium 9.9 (8.6-10.8) mg/dL Total Bilirubin 0.4 (0.2-1.2) mg/dL Direct Bilirubin 0.2 (0.0-0.5) mg/dL Indirect Bilirubin 0.2 (0.0-1.2) mg/dL AST 14 (5-34) Units/L ALT 14 (0-55) Units/L Alkaline Phosphatase 80 (38-126) Units/L Serum Total Protein 8.6 H (6.0-8.3) g/dL Albumin 4.3 (3.5-5.0) g/dL Globulin 4.3 H (2.4-3.5) g/dL Albumin/Globulin Ratio 1.0 L (1.1-2.2) Urine Test (Negative) Salicylates < 5.0 L (15-30) mg/dL Urine Opiates Screen Negative (Chkeka=864) ng/mL Acetaminophen < 1.0 L (10-30) mcg/mL Ur Barbiturates Screen Negative (Ubcmzt=490) ng/mL Ur Phencyclidine Scrn Negative (Cutoff=25) ng/mL Ur Amphetamines Screen Negative (Xkpenk=3416) ng/mL U Benzodiazepines Scrn Negative (Nwuufn=059) ng/mL Urine Cocaine Screen Negative (Cutoff= 300) ng/mL U Marijuana (THC) Screen Negative (Cutoff = 50) ng/mL Ethyl Alcohol < 10 (0-10) mg/dL 03/20/17 Range/Units 19:03 WBC (4.3-11.1) K/mcL RBC (3.82-4.97) M/mcL Hgb (11.5-15.4) g/dL Hct (35.3-44.9) % MCV (83.0-100.0) fL MCH (28.0-33.3) pg MCHC (31.6-35.5) g/dL RDW (11.5-14.5) % Plt Count (140-400) K/mcL MPV (9.4-12.4) fL Immature Gran % (0-4) % Seg Neutrophils % % Lymphocytes % % Monocytes % % Eosinophils % % Basophils % % Neutrophils # (1.6-8.9) K/mcL Lymphocytes # (0.6-4.6) K/mcL Monocytes # (0.0-1.3) K/mcL Eosinophils # (0.0-0.6) K/mcL Basophils # (0.0-0.2) K/mcL Sodium (136-145) mEq/L Potassium (3.5-4.5) mEq/L Chloride (98-109) mEq/L Carbon Dioxide (19-29) mEq/L BUN (7-20) mg/dL Creatinine (0.57-1.11) mg/dL Est GFR ( Amer) (> 60) Est GFR (Non-Af Amer) (> 60) BUN/Creatinine Ratio (6-26) Glucose (70-99) mg/dL Calculated Osmolality (280-300) Calcium (8.6-10.8) mg/dL Total Bilirubin (0.2-1.2) mg/dL Direct Bilirubin (0.0-0.5) mg/dL Indirect Bilirubin (0.0-1.2) mg/dL AST (5-34) Units/L ALT (0-55) Units/L Alkaline Phosphatase (38-126) Units/L Serum Total Protein (6.0-8.3) g/dL Albumin (3.5-5.0) g/dL Globulin (2.4-3.5) g/dL Albumin/Globulin Ratio (1.1-2.2) Urine Test Negative (Negative) Salicylates (15-30) mg/dL Urine Opiates Screen (Amhkan=397) ng/mL Acetaminophen (10-30) mcg/mL Ur Barbiturates Screen (Jxeztc=851) ng/mL Ur Phencyclidine Scrn (Cutoff=25) ng/mL Ur Amphetamines Screen (Cgdlpm=1014) ng/mL U Benzodiazepines Scrn (Wtxrqf=223) ng/mL Urine Cocaine Screen (Cutoff= 300) ng/mL U Marijuana (THC) Screen (Cutoff = 50) ng/mL Ethyl Alcohol (0-10) mg/dL Psychiatric Medical Clearance - Medical Clearance Checklist Medical History: Suicidal ideation (Acute) Bipolar disorder, unspecified (Acute) Anxiety (Acute) Personality disorder (Acute) Essential hypertension (Inactive) Headache (Inactive) Sinusitis (Inactive) No Social History Section defined Current Vitals: Last Vital Signs Temp 98.1 F 03/20/17 18:40 Pulse 105 03/20/17 18:40 Resp 16 03/20/17 18:40 BP 164/118 03/20/17 18:40 Pulse Ox 96 03/20/17 18:40 Psychiatric Lab Panel: Drug Levels and Toxicity 03/20/17 03/20/17 19:00 19:03 Urine Opiates Screen Negative Acetaminophen < 1.0 L Ur Barbiturates Screen Negative Ur Phencyclidine Scrn Negative Ur Amphetamines Screen Negative U Benzodiazepines Scrn Negative Urine Cocaine Screen Negative U Marijuana (THC) Screen Negative Ethyl Alcohol < 10 Abnormal Labs: Abnormal lab results Glucose 103 mg/dL (70-99) H 03/20/17 19:00 Serum Total Protein 8.6 g/dL (6.0-8.3) H 03/20/17 19:00 Globulin 4.3 g/dL (2.4-3.5) H 03/20/17 19:00 Albumin/Globulin Ratio 1.0 (1.1-2.2) L 03/20/17 19:00 Salicylates < 5.0 mg/dL (15-30) L 03/20/17 19:00 Acetaminophen < 1.0 mcg/mL (10-30) L 03/20/17 19:00 Statement of Medical Clearance: I have evaluated the patient, reviewed diagnostic information, and certify that the patient's medical condition is sufficiently stable that transfer to the psychiatric unit does not pose a significant risk of deterioration.
[2017-03-20 19:20] LABS: Amphetamine Screen,Urine Negative ng/mL (Cutoff=1000); Barbiturate Screen,Urine Negative ng/mL (Cutoff=200); Benzodiazepines Screen,Urine Negative ng/mL (Cutoff=200); Cannabinoid Screen,Urine Negative ng/mL (Cutoff = 50); Cocaine Screen,Urine Negative ng/mL (Cutoff= 300); Opiate Screen,Urine Negative ng/mL (Cutoff=300); Phencyclidine Screen,Urine Negative ng/mL (Cutoff=25)
[2017-03-20 19:22] LABS: Alanine Aminotransferase 14 Units/L (0-55); Albumin 4.3 g/dL (3.5-5.0); Alkaline Phosphatase 80 Units/L (38-126); Aspartate Amino Transferase 14 Units/L (5-34); BUN/Creatinine Ratio 8 (6-26); Bilirubin,Direct 0.2 mg/dL (0.0-0.5); Bilirubin,Indirect 0.2 mg/dL (0.0-1.2); Bilirubin,Total 0.4 mg/dL (0.2-1.2); Blood Urea Nitrogen 7 mg/dL (7-20); Calcium 9.9 mg/dL (8.6-10.8); Carbon Dioxide 19 mEq/L (19-29); Chloride 107 mEq/L (98-109); Globulin 4.3 g/dL (2.4-3.5); Glucose 103 mg/dL (70-99); Osmolality,Calculated 284 (280-300); Potassium 3.8 mEq/L (3.5-4.5); Sodium 138 mEq/L (136-145); Total Protein 8.6 g/dL (6.0-8.3); eGFR For African Americans > 60 (> 60); eGFR For Non-African Americans > 60 (> 60)
[2017-03-20 19:23] LABS: Acetaminophen < 1.0 mcg/mL (10-30); Ethanol < 10 mg/dL (0-10); Salicylate < 5.0 mg/dL (15-30)
[2017-03-20] MEDS ORDERED: Haloperidol Lactate 5 MG/ML VIAL IM PRN (21:49)
[2017-03-20] MEDS ORDERED: Mag Hydrox/Al Hydrox/Simeth 30 ML UDC PO PRN (21:49)
[2017-03-20] MEDS ORDERED: *HR* LORazepam 2 MG/ML VIAL IM PRN (21:49)
[2017-03-20] MEDS ORDERED: Ibuprofen 400 MG TABLET PO PRN (21:49)
[2017-03-20] MEDS ORDERED: *HR* LORazepam 1 MG TABLET PO PRN (21:49)
[2017-03-20] MEDS ORDERED: MOM Conc 10 ML UD.LIQ PO PRN (21:49)
[2017-03-20] MEDS: amLODIPine 5 MG TABLET PO SCH (22:29)
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
[2017-03-21] MEDS: hydrOXYzine pamoate 25 MG CAPSULE PO PRN (15:57)
[2017-03-21] MEDS: amLODIPine 5 MG TABLET PO SCH (21:26)
[2017-03-21] MEDS: ARIPiprazole 5 MG TABLET PO SCH (21:26)
--- NOTE | 2017-03-22 11:18 | Psychiatry Progress Note ---
Date of Encounter: 03/22/17 Time of Encounter: 11:14 Subjective Interval history: Client still perseverating on the possibility of getting sick and throwing up. Has a delusional fear about vomiting. Thinks it would be better to than get sick. Denies SI but worried about her health and fears going home knowing someone was in her house recently that had a stomach bug. Started on Celexs and Abilify here. Meds are new so will not make any changes and give them a chance to work. Blood pressure has been high. Already prescribed Amlodipine. Willing to take a higher dose. Once anxiety and stress are less she may not need to continue at higher dose. Review of Systems Constitutional: Denies: fever, chills, weakness, weight change Eyes: Denies: eye pain, vision change Ears, Nose, Throat: Denies: ear pain, throat pain, dental pain, hearing loss, congestion Cardiovascular: Denies: chest pain, palpitations, dyspnea on exertion Respiratory: Denies: cough, dyspnea, wheezes Gastrointestinal: Denies: abdominal pain, nausea, vomiting, diarrhea, constipation Musculoskeletal: Denies: joint swelling, joint pain Neurological: Denies: headache, weakness, numbness, memory loss Psychiatric: Reports: depression, anxiety, suicidal ideation, homicidal ideation , auditory hallucinations, hopelessness, irritability, mood swings Objective: Exam Patient orientation: Yes Person, Yes Time, Yes Place Level of alertness: Alert Patient appearance: Appropriate Behavior: calm, cooperative Psychomotor activity: Normal Eye contact: Maintains Eye Contact Mood description: Anxious Affect description: congruent with mood Speech pattern: Normal rate, Normal rhythm, Normal tone Speech volume: Normal Thought process: Perseveration Thought content: No Suicidal ideation, No Homicidal ideation, Yes Preoccupation Perceptual disturbances: No Auditory hallucinations, No Visual hallucinations Judgment: Limited Insight: Minimal Results - Vital Signs Vital Signs: Temp Pulse Resp BP Pulse Ox 97.8 F 107 16 145/102 96 03/22/17 08:00 03/22/17 08:00 03/22/17 08:00 03/22/17 08:00 03/20/17 18:40 Assessment and Plan (1) Bipolar disorder, unspecified Current visit: No Status: Acute Plan: Continue hospitalization, Close observation, Suicide Precautions per unit protocol, Encourage participation in unit milieu, Group Therapy, Monitor sleep, Monitor appetite Risks, benefits, side effects, alternatives discussed w/pt: Yes Patient agreeable to treatment: Yes Qualifiers: Active/Remission status: currently active Current bipolar episode type: depressed Current episode severity: severe Psychotic features: with psychotic features Qualified Code(s): F31.5 - Bipolar disorder, current episode depressed, severe, with psychotic features Consult Discharge Plan - Plan Referrals: NONE,PCP [Primary Care Provider] -
[2017-03-22] MEDS: hydrOXYzine pamoate 25 MG CAPSULE PO PRN (11:52)
[2017-03-22] MEDS: amLODIPine 5 MG TABLET PO SCH ×2 (12:35→21:01)
[2017-03-22] MEDS: ARIPiprazole 5 MG TABLET PO SCH (21:00)
[2017-03-23] MEDS: amLODIPine 5 MG TABLET PO SCH (08:14)
[2017-03-23] MEDS: hydrOXYzine pamoate 25 MG CAPSULE PO PRN (08:15)
[2017-03-23 14:36] VITALS: BP 145/110
--- NOTE | 2017-03-23 15:58 | Discharge Summary ---
Date of Encounter: 03/23/17 Time of Encounter: 15:55 Diagnosis - Discharge Diagnosis (1) Bipolar disorder, unspecified Status: Acute Qualifiers: Active/Remission status: currently active Current bipolar episode type: depressed Current episode severity: severe Psychotic features: with psychotic features Qualified Code(s): F31.5 - Bipolar disorder, current episode depressed, severe, with psychotic features Medications - Discharge Medications Prescriptions: ARIPiprazole [Abilify] 5 mg PO HS #35 tablet Citalopram [CeleXA] 20 mg PO DAILY #35 tablet ARIPiprazole [Abilify] 5 mg PO HS #35 tablet 03/23/17 [Rx] Citalopram [CeleXA] 20 mg PO DAILY #35 tablet 03/23/17 [Rx] Propranolol [Inderal] 10 mg PO BID PRN tablet 03/23/17 [Rx] amLODIPine [Norvasc] 5 mg PO DAILY tablet 03/23/17 [Rx] amLODIPine [Norvasc] 5 mg PO HS tablet 03/23/17 [Rx] 3 Allergy/AdvReac Type Severity Reaction Status Date / Time No Known Allergies Allergy Verified 03/20/17 18:44 Provider Date of admission: 03/20/17 21:49 Primary care physician: PCP NONE Discharging clinician: Bertha Walters Assessment and Plan - Patient/Caregiver Discharge Instructions Activity: resume usual activities as tolerated Diet: regular diet - Follow up Plan Follow up with: [facility] [Outside] - 04/28/17 10:00 am (The above appointment is with Libra Nielsen Daily, for outpatient psychiatric assessment and medication management services. Please arrive 30 minutes early to complete paperwork. Please bring your photo ID (bring proof of address if you do not have an ID) and medication list. The above appointment(s) reflects first availability. You may contact the office regularly to check for cancellations that may allow you to be seen sooner. Additionally, the new case manager specialist assigned to you will contact you directly to schedule your intake appointment for case management and mental health counseling services. ) Overall status at discharge: Stable Disposition: Home, Self-Care Hospital Course Hospital course: Ms. Calix is a 21 year old female who was admitted secondary to suicidal ideation. She was started on Celexa and Abilify and client demonstrated a positive response to these medications. She continued to experience anxiety and a preoccupation with being sick but her SI diminished over the course of her inpatient stay. Client was given a new roommate the night before her discharge. Her roommate was acutely ill and she was raising client's anxiety levels. Client admitted to ongoing anxiety but felt staying in the hospital would be counterproductive given the living situation. Since client was no longer experiencing SI staff thought it best to discharge her home and allow her to continue in her recovery in more comfortable surroundings. Client lives with her father and he was supportive having her come home. He was also willing to manage her medications until her outpatient appointments. Client was scheduled with [facility] and expressed a desire to follow up with counseling. She was looking forward to painting and seemed future oriented at the time of discharge. - Time Spent with Patient Total time spent providing and/or coordinating discharge services: Quality - Multiple Antipsychotics Patient discharged on 2 or more antipsychotic medications: No Procedures - Procedures Procedures: Medication Management, Crisis Stabilization, Supportive Therapy, Group Therapy Mental Status Exam - Mental Status Exam Patient orientation: Yes Person, Yes Time, Yes Place Level of alertness: Alert Patient appearance: Appropriate, Well Groomed Behavior: nervous Psychomotor activity: Normal Eye contact: Maintains Eye Contact Mood description: Anxious Affect description: congruent with mood Speech pattern: Normal rate, Normal rhythm, Normal tone Speech Volume: Normal Thought process: Linear, Goal Oriented Thought Content: No Suicidal ideation, No Homicidal ideation, No Overt delusions Perceptual Disturbances: No Auditory hallucinations, No Visual hallucinations Judgment: Fair Insight: Partial
== END 2017-03-23 18:40 | disposition home or self-care (01) | DRG 885 ==
LOC: 1ANU 18:39 → EMEROO 18:39 → 1ANU 20:43
PROVIDERS: ADMIT Psychiatry & Neurology Psychiatry; ATTEND Psychiatry & Neurology Psychiatry